=== PATIENT | male | born 1950 | race Caucasian/White ===

== ENCOUNTER 2018-01-03 14:31 | Emergency (ER) | payer MEDICARE, BC ==
[2018-01-03 14:54] VITALS: BP 136/85
[2018-01-03] MEDS ORDERED: Sodium Chloride 0.9% 10 ML Syringe FLUSH PRN (15:10)
[2018-01-03] MEDS ORDERED: Ondansetron 4 MG/2 ML SDV IVPUSH ONE (15:23)
[2018-01-03] MEDS ORDERED: Sodium Chloride 0.9% 1,000 ML IV ONE (15:23)
--- NOTE | 2018-01-03 15:39 | EDM.PDOC ---
ED HPI GENERAL MEDICAL PROBLEM - General Chief Complaint: Neurological Problem Stated Complaint: VOMITING AND DIZZY Time Seen by Provider: 01/03/18 15:10 Source of Information: Reports: Patient History Limitations: Reports: No Limitations - History of Present Illness INITIAL COMMENTS - FREE TEXT/NARRATIVE: The patient is a 67-year-old male with a chief complaint of dizziness and vomiting. He states that he felt okay yesterday. When he woke up today he felt dizzy. He had about 5 episodes of nonbloody vomiting. He said that the room seemed like it was swaying or spinning. He also had a mild headache. No recent head trauma. No weakness or other complaint. He had some mild abdominal pain earlier but that has nearly resolved. No diarrhea. No fever. No ear pain. No recent nasal congestion or other infectious symptoms. No focal weakness or numbness. No vision change. Abdominal Pain Score (Numeric/FACES): 3 - Related Data Allergies Allergy/AdvReac Type Severity Reaction Status Date / Time No Known Allergies Allergy Verified 01/03/18 14:50 Home Meds: Home Meds Cetirizine [ZyrTEC] 10 mg PO DAILY 07/06/14 [History] Losartan/Hydrochlorothiazide [Losartan-HCTZ 50-12.5 MG] 1 tab PO DAILY 07/06/14 [History] Omeprazole [Prilosec] 20 mg PO BID 07/06/14 [History] Ondansetron HCl [Zofran] 4 mg PO ASDIRECTED PRN 07/06/14 [History] Ondansetron [Zofran Odt] 8 mg PO Q6H PRN #10 tab.rapdis 07/06/14 [Rx] PARoxetine [Paxil] 20 mg PO DAILY 07/06/14 [History] Simvastatin [Zocor] 10 mg PO DAILY 07/06/14 [History] metFORMIN [Glucophage] 1,000 mg PO BID 07/06/14 [History] ED ROS GENERAL - Review of Systems Review Of Systems: See Below Constitutional: Denies: Fever HEENT: Denies: Rhinitis Respiratory: Denies: Shortness of Breath Cardiovascular: Denies: Chest Pain Endocrine: Reports: No Symptoms GI/Abdominal: Reports: Vomiting. Denies: Abdominal Pain : Reports: No Symptoms Musculoskeletal: Reports: No Symptoms Skin: Reports: No Symptoms Neurological: Reports: Dizziness Psychiatric: Reports: No Symptoms Hematologic/Lymphatic: Reports: No Symptoms ED EXAM, NEURO - Physical Exam Exam: See Below Exam Limited By: No Limitations General Appearance: Alert, WD/WN, No Apparent Distress Eye Exam: Bilateral Eye: EOMI, Normal Inspection (No nystagmus with lateral eye movements), PERRL Ears: Normal External Exam, Normal Canal, Hearing Grossly Normal, Normal TMs Nose: Normal Inspection, Normal Mucosa, No Blood Throat/Mouth: Normal Inspection, Normal Lips, Normal Teeth, Normal Gums, Normal Oropharynx, Normal Voice, No Airway Compromise Head Exam: Atraumatic, Normocephalic Neck: Normal Inspection, Supple, Non-Tender, Full Range of Motion Respiratory/Chest: No Respiratory Distress, Lungs Clear, Normal Breath Sounds, Chest Non-Tender Cardiovascular: Normal Peripheral Pulses, Regular Rate, Rhythm, No Edema GI/Abdominal: Soft, Non-Tender, No Distention. No: Rebound Neurological: Alert, Normal Mood/Affect, Normal Dorsiflexion, CN II-XII Intact, Normal Plantar Flexion, No Motor/Sensory Deficits, Oriented x 3 Extremities: Normal Inspection Psychiatric: Normal Affect, Normal Mood Skin Exam: Warm, Dry, Intact, Normal Color, No Rash Course - Vital Signs Last Recorded V/S: Last Vital Signs Temp 36.4 C 01/03/18 14:50 Pulse 61 01/03/18 14:50 Resp BP 136/85 01/03/18 14:50 Pulse Ox 99 01/03/18 14:50 - Orders/Labs/Meds Orders: Active Orders 24 hr Category Date Time Status EKG 12 Lead [EKG Documentation Completion] [RC] STAT Care 01/03/18 15:10 Active Peripheral IV Care [RC] . DIRECTED Care 01/03/18 15:10 Active Peripheral IV Care [RC] . DIRECTED Care 01/03/18 15:11 Active UA W/MICROSCOPIC [URIN] Stat Lab 01/03/18 17:45 Ordered Sodium Chloride 0.9% [Saline Flush] Med 01/03/18 15:10 Active 10 ml FLUSH ASDIRECTED PRN Peripheral IV Insertion Adult [OM.PC] Routine Oth 01/03/18 15:10 Ordered Medication Orders Sodium Chloride (Saline Flush) 10 ml FLUSH ASDIRECTED PRN PRN Reason: Keep Vein Open Last Admin: 01/03/18 15:18 Dose: 10 ml Labs: Laboratory Tests 01/03/18 01/03/18 01/03/18 Range/Units 15:05 15:05 17:45 WBC 8.78 (4.23-9.07) K/mm3 RBC 4.61 L (4.63-6.08) M/mm3 Hgb 14.2 (13.7-17.5) gm/L Hct 41.9 (40.1-51.0) % MCV 90.9 (79.0-92.2) fl MCH 30.8 (25.7-32.2) pg MCHC 33.9 (32.2-35.5) g/dl RDW Std Deviation 41.5 (35.1-43.9) fL Plt Count 210 (163-337) K/mm3 MPV 9.8 (9.4-12.3) fl Neut % (Auto) 76.4 H (34.0-67.9) % Lymph % (Auto) 12.4 L (21.8-53.1) % Humphreys % (Auto) 9.2 (5.3-12.2) % Eos % (Auto) 1.6 (0.8-7.0) Baso % (Auto) 0.2 (0.1-1.2) % Neut # (Auto) 6.70 H (1.78-5.38) K/mm3 Lymph # (Auto) 1.09 L (1.32-3.57) K/mm3 Humphreys # (Auto) 0.81 (0.30-0.82) K/mm3 Eos # (Auto) 0.14 (0.04-0.54) K/mm3 Baso # (Auto) 0.02 (0.01-0.08) K/mm3 Sodium 137 (136-145) mEq/L Potassium 3.7 (3.5-5.1) mEq/L Chloride 102 (98-107) mEq/L Carbon Dioxide 24 (21-32) mEq/L Anion Gap 14.7 (5-15) BUN 16 (7-18) mg/dL Creatinine 0.8 (0.7-1.3) mg/dL Est Cr Clr Drug Dosing 87.03 mL/min Estimated GFR (MDRD) > 60 (>60) mL/min BUN/Creatinine Ratio 20.0 H (14-18) Glucose 162 H (80-115) mg/dL Calcium 8.5 (8.5-10.1) mg/dL Magnesium 1.9 (1.8-2.4) mg/dl Total Bilirubin 1.2 H (0.2-1.0) mg/dL AST 37 (15-37) U/L ALT 66 H (16-63) U/L Alkaline Phosphatase 58 (46-116) U/L Troponin I < 0.017 (0.00-0.056) ng/mL Total Protein 7.4 (6.4-8.2) g/dl Albumin 3.7 (3.4-5.0) g/dl Globulin 3.7 gm/dL Albumin/Globulin Ratio 1.0 (1-2) Lipase 111 (73-393) U/L Urine Color Yellow (Yellow) Urine Appearance Clear (Clear) Urine pH 8.5 H (5.0-8.0) Ur Specific [place] 1.020 (1.005-1.030) Urine Protein 1+ H (Negative) Urine Glucose (UA) Negative (Negative) Urine Ketones Trace H (Negative) Urine Occult Blood Negative (Negative) Urine Nitrite Negative (Negative) Urine Bilirubin Negative (Negative) Urine Urobilinogen 0.2 (0.2-1.0) Ur Leukocyte Esterase Negative (Negative) Urine RBC 0-5 (0-5) /hpf Urine WBC 0-5 (0-5) /hpf Ur Epithelial Cells 0-5 (0-5) /hpf Urine Bacteria Not seen (FEW) /hpf Urine Mucus Moderate H (FEW) /hpf Meds: Medications Generic Name Dose Route Start Last Admin Trade Name Freq PRN Reason Stop Dose Admin Sodium Chloride 10 ml 01/03/18 15:10 01/03/18 15:18 Saline Flush FLUSH 10 ml ASDIRECTED PRN Administration Keep Vein Open Discontinued Medications Generic Name Dose Route Start Last Admin Trade Name Freq PRN Reason Stop Dose Admin Diphenhydramine HCl 25 mg 01/03/18 15:50 01/03/18 16:16 Benadryl IVPUSH 01/03/18 15:51 25 mg ONETIME ONE Administration Sodium Chloride 1,000 mls @ 1,000 mls/hr 01/03/18 15:23 01/03/18 16:13 Normal Saline IV 01/03/18 16:22 1,000 mls/hr ONETIME ONE Administration Ketorolac Tromethamine 30 mg 01/03/18 15:50 01/03/18 16:15 Toradol IVPUSH 01/03/18 15:51 30 mg ONETIME ONE Administration Meclizine HCl 25 mg 01/03/18 15:26 01/03/18 16:13 Antivert PO 01/03/18 15:27 25 mg ONETIME ONE Administration Metoclopramide HCl 10 mg 01/03/18 15:50 01/03/18 16:14 Reglan IVPUSH 01/03/18 15:51 10 mg ONETIME ONE Administration Ondansetron HCl 4 mg 01/03/18 15:23 01/03/18 16:14 Zofran IVPUSH 01/03/18 15:24 4 mg ONETIME ONE Administration - Re-Assessments/Exams Free Text/Narrative Re-Assessment/Exam: 01/03/18 18:37 Patient felt much better after Benadryl, Reglan, Toradol, and meclizine. His headache is resolved. His dizziness has resolved. He no longer has a headache. He would like to go home. His labs including CBC, chemistry, lipase were all normal. Discussed return precautions. Departure - Departure Time of Disposition: 17:59 Disposition: Home, Self-Care 01 Clinical Impression: Dizziness Vomiting Qualifiers: Vomiting type: unspecified Vomiting Intractability: non-intractable Nausea presence: with nausea Qualified Code(s): R11.2 - Nausea with vomiting, unspecified - Discharge Information Instructions: Vomiting, Adult, Dizziness, [id number] Referrals: Justin Armendariz MD [Primary Care Provider] - Forms: ED Department Discharge Additional Instructions: 1. Follow up with your primary care doctor in about a week 2. Return to the ED as needed, especially if you have severe dizziness, vomiting without keeping liquids down, severe pain, or other concerning symptoms. - My Orders Last 24 Hours: My Active Orders 01/03/18 15:10 EKG 12 Lead [EKG Documentation Completion] [RC] STAT Peripheral IV Care [RC] . DIRECTED Sodium Chloride 0.9% [Saline Flush] 10 ml FLUSH ASDIRECTED PRN Peripheral IV Insertion Adult [OM.PC] Routine 01/03/18 15:11 Peripheral IV Care [RC] . DIRECTED 01/03/18 17:45 UA W/MICROSCOPIC [URIN] Stat - Assessment/Plan Last 24 Hours: My Active Orders 01/03/18 15:10 EKG 12 Lead [EKG Documentation Completion] [RC] STAT Peripheral IV Care [RC] . DIRECTED Sodium Chloride 0.9% [Saline Flush] 10 ml FLUSH ASDIRECTED PRN Peripheral IV Insertion Adult [OM.PC] Routine 01/03/18 15:11 Peripheral IV Care [RC] . DIRECTED 01/03/18 17:45 UA W/MICROSCOPIC [URIN] Stat
[2018-01-03] MEDS ORDERED: diphenhydrAMINE 50 MG/ML SDV IVPUSH ONE (15:50)
[2018-01-03] MEDS ORDERED: Metoclopramide 10 MG/2 ML SDV IVPUSH ONE (15:50)
[2018-01-03] MEDS ORDERED: Ketorolac 30 MG/ML SDV IVPUSH ONE (15:50)
== END 2018-01-03 18:20 | disposition home or self-care (01) ==
LOC: JD.ED 14:31
DX: R42 Dizziness and giddiness (principal); R11.2 Nausea with vomiting, unspecified; Z79.899 Other long term (current) drug therapy
CPT/HCPCS: 36415; 80053; 81001; 83690; 83735; 84484; 85025; 93005; 96361; 96374; 96375; 99284; A9270; J1200; J1885; J2405; J2765; J7040; J7050

== ENCOUNTER 2021-10-30 10:30 | Emergency (ER) | payer MEDICARE, BC ==
[2021-10-30 10:54] VITALS: BP 123/70; PULSE 55
[2021-10-30] MEDS ORDERED: Sodium Chloride 0.9% 1,000 ML IV STA (11:05)
[2021-10-30] MEDS ORDERED: Ondansetron 4 MG/2 ML SDV IVPUSH ONE (11:05)
[2021-10-30] MEDS ORDERED: HYDROmorphone 0.5 MG/0.5 ML Syringe IVPUSH ONE (11:07)
[2021-10-30] MEDS: Sodium Chloride 0.9% 10 ML Syringe FLUSH PRN ×2 (11:44→12:46)
[2021-10-30 12:19] LABS: ESTIMATED GFR > 60 mL/min (>60)
[2021-10-30] MEDS ORDERED: Iopamidol 612 MG/ML 100 ML Bottle IVPUSH ONE (12:27)
[2021-10-30] MEDS ORDERED: Iopamidol 612 MG/ML 50 ML SDV IVPUSH ONE (12:27)
[2021-10-30] MEDS ORDERED: Metoclopramide 10 MG/2 ML SDV IVPUSH ONE (13:39)
== END 2021-10-30 14:44 | disposition home or self-care (01) ==
LOC: JD.ED 10:30
DX: A08.4 Viral intestinal infection, unspecified (principal); E78.00 Pure hypercholesterolemia, unspecified; I10 Essential (primary) hypertension; E11.9 Type 2 diabetes mellitus without complications; Z79.899 Other long term (current) drug therapy; Z79.84 Long term (current) use of oral hypoglycemic drugs
CPT/HCPCS: 36415; 74177; 80053; 81001; 83690; 85025; 96361; 96374; 96375; 99284; J1170; J2405; J2765; J3490; J7030; Q9967